=== PATIENT | male | born 1980 | race Caucasian/White ===

== ENCOUNTER 2019-03-25 23:04 | Emergency (ER) | payer OTHER ==
[~2019-03-25] VITALS: Ht 185.4 cm; Wt 105.0 kg
[~2019-03-25 23:04] MED LIST: IBUP-1542 PO
[2019-03-25 23:33] VITALS: BP 136/89; PULSE 70; RESP 18; Ht 185.4 cm; Wt 105.0 kg
== END 2019-03-25 23:45 | disposition home or self-care (01) ==
LOC: E/R 23:04
DX: S60.121A Contusion of right index finger with damage to nail, initial encounter (principal); W23.1XXA Caught, crushed, jammed, or pinched between stationary objects, initial encounter; Y92.810 Car as the place of occurrence of the external cause